=== PATIENT | male | born 1975 | race African-American/Black ===

== ENCOUNTER 2016-12-04 12:43 | Inpatient (IN) | payer OTHER ==
[~2016-12-04] VITALS: Ht 177.8 cm; Wt 74.6 kg
[2016-12-04 15:38] LABS: EOSINOPHIL (%) 6.7 % (0-5); EOSINOPHIL COUNT 0.5 K/uL (0-0.3); HEMATOCRIT 44.9 % (38.0-50.0); IMMATURE GRANULOCYTE (%) 0.2 % (0.0-0.7); INSTRUMENT ABS NEUTROPHIL CT 4.7 K/uL; LYMPHOCYTE COUNT 2.4 K/uL (1.0-2.8); MCH 28.8 PG (29.0-34.0); MCV 87.4 FL (86-99); MEAN PLAT.VOLUME 9.9 uM^3 (9.0-12.4); MONOCYTE (%) 5.2 % (3-12); MONOCYTE COUNT 0.4 K/uL (0-0.8); NEUTROPHIL COUNT 4.7 K/uL (1.8-6.4); PLATELET COUNT 205 K/uL (156-360); RED BLOOD COUNT 5.14 M/uL (4.00-5.50); WHITE BLOOD COUNT 8.1 K/uL (4.1-10.2)
[2016-12-04 15:51] LABS: CHLORIDE 105 mEq/L (99-109); POTASSIUM 4.6 mEq/L (3.7-5.4); SODIUM 141 mEq/L (136-147)
[2016-12-04 15:53] LABS: GLUCOSE 95 mg/dL (70-99)
[2016-12-04 15:54] LABS: ANION GAP 8 MEQ/L (2-14)
[2016-12-04 15:57] LABS: GFR ESTIMATE (CALCULATED) > 59 mL/min/
[2016-12-04 15:58] LABS: UREA NITROGEN (BUN) 13 mg/dL (9-23)
[2016-12-04] MEDS ORDERED: TERBINAFINE HC250 MG PO (18:27)
[2016-12-04] MEDS ORDERED: NYSTATIN15 GM TP (18:27)
[2016-12-04] MEDS ORDERED: SUBOXONE 8 MG-1 EAC2 SL (18:27)
[2016-12-04] MEDS ORDERED: QUETIAPINE FUMA50 MG PO (18:28)
[2016-12-04] MEDS ORDERED: NAPROXEN500 M1 PO (18:29)
[2016-12-04] MEDS ORDERED: SYMBICORT60 INHALAT IH (18:31)
[2016-12-04] MEDS ORDERED: VENTOLIN HFA18 GM IH (18:32)
[2016-12-04 22:17] VITALS: BP 133/94
[2016-12-05 03:41] VITALS: BP 129/82
[2016-12-05 05:34] LABS: EOSINOPHIL (%) 8.7 % (0-5); EOSINOPHIL COUNT 0.6 K/uL (0-0.3); HEMATOCRIT 39.4 % (38.0-50.0); IMMATURE GRANULOCYTE (%) 0.1 % (0.0-0.7); INSTRUMENT ABS NEUTROPHIL CT 3.8 K/uL; LYMPHOCYTE COUNT 2.1 K/uL (1.0-2.8); MCHC 33.2 G/DL (30.0-36.0); MCV 87.4 FL (86-99); MEAN PLAT.VOLUME 10.3 uM^3 (9.0-12.4); MONOCYTE (%) 6.8 % (3-12); MONOCYTE COUNT 0.5 K/uL (0-0.8); NEUTROPHIL (%) 54.2 % (45-76); NEUTROPHIL COUNT 3.8 K/uL (1.8-6.4); PLATELET COUNT 171 K/uL (156-360); RBC DIS.WIDTH-CV 13.9 % (11.8-14.6); RBC DIS.WIDTH-SD 44.5 % (39-53); RED BLOOD COUNT 4.51 M/uL (4.00-5.50)
[2016-12-05 05:52] LABS: ANION GAP 8 MEQ/L (2-14); C-REACTIVE PROTEIN 7.7 MG/L (0-10); CHLORIDE 107 MEQ/L (99-109); GFR ESTIMATE (CALCULATED) > 59 mL/min/; GLUCOSE 76 mg/dL (70-99); POTASSIUM 4.3 MEQ/L (3.7-5.4); SAMPLE HEMOLYSIS CHECK 0; SAMPLE ICTERIC CHECK 0; SAMPLE LIPEMIA CHECK 0; SODIUM 140 MEQ/L (136-147); UREA NITROGEN (BUN) 15 mg/dL (9-23)
[2016-12-05 07:05] LABS: ERTH.SED.RATE 2 MM/HR (0-15)
[2016-12-05 08:11] VITALS: BP 135/82
[2016-12-05 11:39] VITALS: BP 130/70
[2016-12-05 15:48] VITALS: BP 133/79
[2016-12-05] MEDS ORDERED: ZUBSOLV 5.7-1.1 EACH SL (17:04)
[2016-12-05] MEDS ORDERED: ZUBSOLV 2.9-0.1 EACH SL (17:06)
[2016-12-05 19:32] VITALS: BP 137/88
[2016-12-05 23:15] VITALS: BP 124/73
[2016-12-06 04:43] VITALS: BP 121/66
[2016-12-06 07:42] VITALS: BP 131/77
[2016-12-06 11:51] VITALS: BP 130/76
[2016-12-06 15:29] VITALS: BP 138/78
[2016-12-06 19:52] VITALS: BP 130/82
[2016-12-06 23:29] VITALS: BP 122/86
[2016-12-07 07:35] VITALS: BP 135/91
[2016-12-07 11:20] VITALS: BP 128/82
[2016-12-07] MEDS ORDERED: TERBINAFINE HC250 MG PO (15:23)
[2016-12-07] MEDS ORDERED: TERBINAFINE HCL30 GM TP (15:24)
[2016-12-07] MEDS ORDERED: CIPRO500 MG PO (15:25)
[2016-12-07] MEDS ORDERED: LAMISIL250 MG PO (15:25)
== END 2016-12-07 17:30 | disposition home or self-care (01) | DRG 603 ==
LOC: EME 12:43 → 4SOUTH 17:41 → EDOF 17:41 → 4SOUTH 22:01
PROVIDERS: Emergency Medicine; Family Medicine Sports Medicine
DX: L03.115 Cellulitis of right lower limb (principal); I96 Gangrene, not elsewhere classified; L97.519 Non-pressure chronic ulcer of other part of right foot with unspecified severity; F11.10 Opioid abuse, uncomplicated; L02.611 Cutaneous abscess of right foot; B96.5 Pseudomonas (aeruginosa) (mallei) (pseudomallei) as the cause of diseases classified elsewhere; B35.3 Tinea pedis; F10.21 Alcohol dependence, in remission; F17.210 Nicotine dependence, cigarettes, uncomplicated; J45.909 Unspecified asthma, uncomplicated; Z79.51 Long term (current) use of inhaled steroids; Z83.3 Family history of diabetes mellitus; Z87.828 Personal history of other (healed) physical injury and trauma
CPT/HCPCS: 73630; 80048; 80202; 85025; 85651; 86140; 94640; 94640 76; 99202; 99281; 99285; A6260; J0574; J1650; J2543; J3370; J7030; J7050

== ENCOUNTER 2017-02-22 09:56 | Day surgery (SDC) | payer OTHER ==
[~2017-02-22] VITALS: Ht 180.3 cm; Wt 88.0 kg
[~2017-02-22 09:56] MED LIST: CIPRO500 MG PO; FISH OIL 1,0001 EAC7 PO; LAMISIL250 MG PO; NAPROXEN500 M1 PO; NAPROXEN500 MG PO; NYSTATIN15 GM TP; QUETIAPINE FUMA50 MG PO; RANITIDINE HCL150 MG PO; SUBOXONE 8 MG-1 EAC2 SL; SYMBICORT60 INHALAT IH; TERBINAFINE HC250 MG PO; TERBINAFINE HCL30 GM TP; VENTOLIN HFA18 GM IH; ZUBSOLV 2.9-0.1 EACH SL; ZUBSOLV 5.7-1.1 EACH SL
== END 2017-02-22 19:44 | disposition home or self-care (01) ==
LOC: CATH 09:56
PROC: B2151ZZ Fluoroscopy of Left Heart using Low Osmolar Contrast (ICD-10-PCS; principal; 2017-02-22)
PROC: B2111ZZ Fluoroscopy of Multiple Coronary Arteries using Low Osmolar Contrast (ICD-10-PCS; principal; 2017-02-22)
PROC: 4A023N7 Measurement of Cardiac Sampling and Pressure, Left Heart, Percutaneous Approach (ICD-10-PCS; principal; 2017-02-22)
DX: R94.39 Abnormal result of other cardiovascular function study (principal); R07.2 Precordial pain; Q24.5 Malformation of coronary vessels; F11.20 Opioid dependence, uncomplicated; Z87.828 Personal history of other (healed) physical injury and trauma; R00.2 Palpitations; I27.2 Other secondary pulmonary hypertension; I34.1 Nonrheumatic mitral (valve) prolapse; Z87.891 Personal history of nicotine dependence; Z87.898 Personal history of other specified conditions
CPT/HCPCS: C1769; C1887; J1644; J2250